=== PATIENT | female | born 1980 | race Caucasian/White ===

== ENCOUNTER 2018-10-16 18:08 | Inpatient (IN) | payer OTHER ==
[~2018-10-16] VITALS: Ht 162.6 cm; Wt 68.0 kg
[~2018-10-16 18:08] MED LIST: ALPR0.254 PO; CITA10TA5 PO; FERR27TA; FOLI0.4T2; HYDR-3601 PO; LEVE-5; LEVE500T8 PO; PRED10TA PO; PREN1TAB49; SULF500T5 PO; TRAM50TA2 PO
[2018-10-16] MEDS ORDERED: morphine 4 MG/ML VIAL IV STA (23:44)
[2018-10-16] MEDS ORDERED: SOD CHLORIDE 0.9% 1,000 ML IV STA (23:44)
[2018-10-16] MEDS ORDERED: ONDANSETRON 4 MG INJ IV STA (23:44)
[2018-10-17] MEDS ORDERED: HYDROmorphONE 0.5 MG/0.5 ML SYG IV STA (00:44)
[2018-10-17] MEDS ORDERED: ACETAMINOPHEN 325 MG TAB PO PRN (02:00)
[2018-10-17] MEDS ORDERED: ONDANSETRON 4 MG INJ IV PRN ×2 (02:00→08:00)
[2018-10-17] MEDS ORDERED: morphine 2 MG INJ ONE (04:25)
[2018-10-17] MEDS: morphine 2 MG INJ IV PRN ×5 (04:26→23:09)
[2018-10-17 06:15] VITALS: BP 119/64; PULSE 83; RESP 17; Ht 162.6 cm; Wt 68.0 kg
[2018-10-17 08:00] VITALS: BP 104/64; PULSE 68; RESP 18
[2018-10-17] MEDS ORDERED: ALPRAZOLAM 0.25 MG TAB PO PRN (08:00)
[2018-10-17 08:19] VITALS: BP 115/69; PULSE 85; RESP 18
[2018-10-17] MEDS: METHYLPREDNISOLONE 40 MG INJ IV SCH ×2 (08:22→20:41)
[2018-10-17] MEDS: SOD CHLORIDE 0.45% 1,000 ML IV SCH (08:22)
[2018-10-17] MEDS: CITALOPRAM 20 MG TAB PO SCH (08:22)
[2018-10-17] MEDS: metroNIDAZOLE 500 MG/NS (PMX) 100 ML IVPB SCH ×3 (08:22→22:10)
[2018-10-17] MEDS: SULFASALAZINE 500 MG TAB PO SCH ×4 (08:23→20:41)
[2018-10-17] MEDS ORDERED: LEVETIRACETAM 500 MG TAB PO SCH ×2 (09:00→21:00)
[2018-10-17] MEDS: CIPROFLOXACIN 400MG/D5W 200 ML IVPB SCH ×2 (09:34→20:41)
[2018-10-17] MEDS: HYDROCODONE/APAP (5/325) TAB PO PRN ×4 (09:38→22:10)
[2018-10-17 15:12] VITALS: BP 109/66; PULSE 78; RESP 17
[2018-10-17 20:25] VITALS: BP 96/61; PULSE 62; RESP 16
[2018-10-17] MEDS: MESALAMINE (EC) 400 MG CAP PO SCH (20:42)
[2018-10-17] MEDS: PANTOPRAZOLE 40 MG INJ IV SCH (22:10)
[2018-10-18] MEDS: SOD CHLORIDE 0.45% 1,000 ML IV SCH ×2 (00:40→06:27)
[2018-10-18 02:00] VITALS: BP 96/61; PULSE 63; RESP 18
[2018-10-18] MEDS: HYDROCODONE/APAP (5/325) TAB PO PRN ×4 (02:01→16:20)
[2018-10-18] MEDS: morphine 2 MG INJ IV PRN ×3 (03:05→13:18)
[2018-10-18] MEDS: metroNIDAZOLE 500 MG/NS (PMX) 100 ML IVPB SCH ×2 (05:55→13:56)
[2018-10-18] MEDS: PANTOPRAZOLE 40 MG INJ IV SCH (06:26)
[2018-10-18 07:42] VITALS: BP 92/55; PULSE 54; RESP 16
[2018-10-18] MEDS: METHYLPREDNISOLONE 40 MG INJ IV SCH (08:29)
[2018-10-18] MEDS: MESALAMINE (EC) 400 MG CAP PO SCH ×2 (08:29→12:04)
[2018-10-18] MEDS: CITALOPRAM 20 MG TAB PO SCH (08:29)
[2018-10-18] MEDS: CIPROFLOXACIN 400MG/D5W 200 ML IVPB SCH (08:30)
[2018-10-18] MEDS: SULFASALAZINE 500 MG TAB PO SCH ×2 (08:30→12:03)
[2018-10-18] MEDS ORDERED: LEVETIRACETAM 500 MG TAB PO SCH (09:00)
[2018-10-18 14:17] VITALS: BP 90/55; PULSE 68; RESP 17
[2018-10-18 16:10] VITALS: BP 102/71
== END 2018-10-18 16:27 | disposition short-term general hospital (02) | DRG 387 ==
LOC: E/R 18:08 → MS1 10-17 01:32
PROVIDERS: ADMIT Internal Medicine; ATTEND Internal Medicine
DX: K51.90 Ulcerative colitis, unspecified, without complications (principal); F12.90 Cannabis use, unspecified, uncomplicated; R19.7 Diarrhea, unspecified; G40.909 Epilepsy, unspecified, not intractable, without status epilepticus; M54.9 Dorsalgia, unspecified; F17.200 Nicotine dependence, unspecified, uncomplicated
CPT/HCPCS: 74176; 80048; 80053; 81001; 81025; 83690; 85025; C9113; J0744; J1170; J2270; J2405; J2920; J7030

== ENCOUNTER 2019-01-03 10:21 | Emergency (ER) | payer OTHER ==
[~2019-01-03] VITALS: Ht 162.6 cm; Wt 68.2 kg
[~2019-01-03 10:21] MED LIST changes: +CIPR500T4 PO; +CITA20TA8 ORAL; -FERR27TA; -FOLI0.4T2; +HYDR-3609 ORAL; +HYDR-3980 PO; +HYDR-4011 PO; +IBUP800T48 PO; -LEVE-5; +LEVE-5 PO; +PANT40TA4 ORAL; +PRED20TA PO; -PREN1TAB49; +[UNRECOGNIZED DRUG - CODE] ORAL
[2019-01-03 10:24] VITALS: Ht 162.6 cm; Wt 68.2 kg
[2019-01-03] MEDS ORDERED: HYDROmorphONE 1 MG/ML SYG IV STA ×2 (11:28→15:10)
[2019-01-03] MEDS ORDERED: DIPHENHYDRAMINE 50 MG INJ IV STA (11:28)
[2019-01-03] MEDS ORDERED: PROCHLORPERAZINE 10 MG INJ IV STA (11:28)
[2019-01-03] MEDS ORDERED: ONDANSETRON 4 MG INJ IV STA (15:10)
[2019-01-03 17:59] VITALS: BP 116/80; PULSE 75; RESP 16
== END 2019-01-03 18:00 | disposition home or self-care (01) ==
LOC: E/R 10:21
DX: G43.909 Migraine, unspecified, not intractable, without status migrainosus (principal); R20.0 Anesthesia of skin; R40.2142 Coma scale, eyes open, spontaneous, at arrival to emergency department; R40.2252 Coma scale, best verbal response, oriented, at arrival to emergency department; R40.2362 Coma scale, best motor response, obeys commands, at arrival to emergency department
CPT/HCPCS: 36415; 70450; 70553; 80048; 85025; 96374; 96375; 96376; J0780; J1170; J1200; J2405; Z7502